=== PATIENT | male | born 1950 | race African-American/Black ===

== ENCOUNTER 2016-10-24 15:31 | Emergency (ER) | payer OTHER, MEDICAID ==
[~2016-10-24] VITALS: Ht 182.9 cm; Wt 143.0 kg
[~2016-10-24 15:31] MED LIST: CLOP75TA33 PO; FURO40TA5 PO; GABA-531 PO; HYDR-4092 PO; LISI10TA5 PO; LOSA100T14 PO; RIVA20TA PO; TAMS0.4C31 PO; TRAM50TA3 PO
[2016-10-24 16:27] LABS: BASOPHILS % 0.7 % (0.0-2.0); EOSINOPHILS % 2.9 % (0.0-5.0); HEMATOCRIT. 37.4 % (42.0-52.0); LYMPHOCYTES % 32.7 % (20.0-50.0); MEAN CORPUSCULAR HEMOGLOBIN 32.1 pg (28.0-32.0); MEAN CORPUSCULAR VOLUME 92.8 fL (80.0-94.0); MEAN PLATELET VOLUME 8.5 fl (7.4-10.4); MONOCYTES % 9.6 % (2.0-8.0); NEUTROPHILS % 54.1 % (40.0-76.0); PLATELET 152 x1000/uL (130-400); RED BLOOD CELL COUNT 4.03 mill/uL (4.7-6.1); RED CELL DISTRIBUTION WIDTH 14.1 % (11.6-14.6)
[2016-10-24 16:34] LABS: INR 1.1; PROTHROMBIN TIME 11.3 sec
[2016-10-24 16:41] LABS: CARBON DIOXIDE 30 mEq/L (21-32); CHLORIDE 105 mEq/L (98-107); TROPONIN I < 0.02 ng/mL (0.00-0.04)
[2016-10-24 16:43] LABS: CLARITY URINE CLEAR (CLEAR); COLOR URINE YELLOW (YELLOW); GLUCOSE URINE NEGATIVE (NEGATIVE); KETONES URINE NEGATIVE (NEGATIVE); LEUKOCYTE ESTERASE URINE NEGATIVE (NEGATIVE); NITRITE URINE NEGATIVE (NEGATIVE); OCCULT BLOOD URINE NEGATIVE (NEGATIVE); PROTEIN URINE NEGATIVE (NEGATIVE); SPECIFIC GRAVITY URINE 1.011 (1.005-1.030); UROBILINOGEN URINE 0.2 E.U./dL (0.2-1.0)
[2016-10-24] MEDS ORDERED: FUROSEMIDE 40MG TABLET PO ONE (18:30)
[2016-10-24 18:58] VITALS: BP 111/60
== END 2016-10-24 19:07 | disposition home or self-care (01) ==
LOC: ER 15:59
DX: R60.0 Localized edema (principal); I11.0 Hypertensive heart disease with heart failure; I50.9 Heart failure, unspecified; I25.10 Atherosclerotic heart disease of native coronary artery without angina pectoris; E78.00 Pure hypercholesterolemia, unspecified; Z95.5 Presence of coronary angioplasty implant and graft; Z95.0 Presence of cardiac pacemaker; Z86.73 Personal history of transient ischemic attack (TIA), and cerebral infarction without residual deficits; Z79.01 Long term (current) use of anticoagulants
CPT/HCPCS: 36415; 71010; 80053; 81003; 83880; 84484; 85025; 85610; 93005; 93970; 99285

== ENCOUNTER 2017-05-18 10:51 | Emergency (ER) | payer OTHER, MEDICAID ==
[~2017-05-18] VITALS: Ht 180.3 cm; Wt 140.0 kg
[2017-05-18] MEDS ORDERED: KETOROLAC 30MG/ML VIAL IV STA (11:07)
[2017-05-18] MEDS ORDERED: SODIUM CHLORIDE 0.9% 500 ML IV ONE (11:07)
[2017-05-18 12:12] LABS: BASOPHILS % 0.6 % (0.0-2.0); EOSINOPHILS % 1.9 % (0.0-5.0); HEMATOCRIT. 37.5 % (42.0-52.0); HEMOGLOBIN. 12.8 g/dL (14.0-18.0); LYMPHOCYTES % 24.1 % (20.0-50.0); MEAN CORPUSCULAR HEMOGLOBIN 32.4 pg (28.0-32.0); MEAN CORPUSCULAR VOLUME 95.2 fL (80.0-94.0); MEAN PLATELET VOLUME 8.2 fl (7.4-10.4); MONOCYTES % 9.2 % (2.0-8.0); NEUTROPHILS % 64.2 % (40.0-76.0); PLATELET 135 x1000/uL (130-400); RED BLOOD CELL COUNT 3.94 mill/uL (4.7-6.1); RED CELL DISTRIBUTION WIDTH 13.9 % (11.6-14.6)
[2017-05-18 12:27] LABS: INR 1.2; PROTHROMBIN TIME 12.7 sec (9.4-11.6)
[2017-05-18 12:28] LABS: CARBON DIOXIDE 31 mEq/L (21-32); CHLORIDE 109 mEq/L (98-107); TROPONIN I < 0.02 ng/mL (0.00-0.04)
[2017-05-18 15:40] LABS: KETONES URINE NEGATIVE (NEGATIVE); LEUKOCYTE ESTERASE URINE NEGATIVE (NEGATIVE); NITRITE URINE NEGATIVE (NEGATIVE); OCCULT BLOOD URINE 3+ (NEGATIVE); PH URINE 5.5 (4.5-8.0); PROTEIN URINE NEGATIVE (NEGATIVE); SPECIFIC GRAVITY URINE 1.013 (1.005-1.030); UROBILINOGEN URINE 0.2 E.U./dL (0.2-1.0)
[2017-05-18 15:47] LABS: CLARITY URINE SLIGHTLY HAZY (CLEAR); COLOR URINE YELLOW (YELLOW)
[2017-05-18] MEDS ORDERED: MORPHINE SULFATE 4 MG/ML CPJ (NOT FOR IM USE) IV ONE (16:45)
[2017-05-18 21:40] VITALS: BP 139/75
== END 2017-05-18 22:19 | disposition home or self-care (01) ==
LOC: ER 10:51
DX: R31.9 Hematuria, unspecified (principal); R33.9 Retention of urine, unspecified; N20.0 Calculus of kidney; G89.29 Other chronic pain; I11.0 Hypertensive heart disease with heart failure; I50.9 Heart failure, unspecified; N40.1 Benign prostatic hyperplasia with lower urinary tract symptoms; I25.2 Old myocardial infarction; I25.10 Atherosclerotic heart disease of native coronary artery without angina pectoris; Z95.1 Presence of aortocoronary bypass graft; Z95.0 Presence of cardiac pacemaker; Z86.73 Personal history of transient ischemic attack (TIA), and cerebral infarction without residual deficits; Z79.01 Long term (current) use of anticoagulants
CPT/HCPCS: 36415; 51702; 71010; 74176; 80053; 81001; 83690; 83880; 84484; 85025; 85610; 93005; 96361; 96374; 96375; 99285; J1885; J2270; J7030

== ENCOUNTER 2018-02-28 16:19 | Inpatient (IN) | payer MEDICARE, MEDICAID ==
[~2018-02-28] VITALS: Ht 190.5 cm; Wt 140.6 kg
[~2018-02-28 16:19] MED LIST changes: +HYDR-4086 PO; -HYDR-4092 PO
[2018-02-28] MEDS ORDERED: LABETALOL 5MG/ML SYR 20 MG/4 ML SYRINGE IV ONE (16:45)
[2018-02-28] MEDS ORDERED: MORPHINE SULFATE 4 MG/ML CPJ (NOT FOR IM USE) IV ONE (16:45)
[2018-02-28] MEDS: NITROGLYCERIN 0.4MG TABLET SL SL PRN ×2 (17:26→19:07)
[2018-02-28 17:51] LABS: INR 1.2; PROTHROMBIN TIME 12.4 sec (9.1-11.1)
[2018-02-28 17:53] LABS: CHLORIDE 108 mEq/L (98-107)
[2018-02-28 17:57] LABS: BASOPHILS % 0.7 % (0.0-2.0); EOSINOPHILS % 2.3 % (0.0-5.0); HEMOGLOBIN. 12.8 g/dL (14.0-18.0); LYMPHOCYTES % 25.7 % (20.0-50.0); MEAN CORPUSCULAR HEMOGLOBIN 32.2 pg (28.0-32.0); MEAN CORPUSCULAR VOLUME 95.6 fL (80.0-94.0); MEAN PLATELET VOLUME 8.9 fl (7.4-10.4); MONOCYTES % 7.1 % (2.0-8.0); NEUTROPHILS % 64.2 % (40.0-76.0); PLATELET 119 x1000/uL (130-400); RED BLOOD CELL COUNT 3.98 mill/uL (4.7-6.1); RED CELL DISTRIBUTION WIDTH 14.5 % (11.6-14.6)
[2018-02-28] MEDS ORDERED: IOHEXOL-350 100 ML BOTTLE ONE (20:19)
[2018-02-28] MEDS ORDERED: ASPIRIN 81MG TABLET PO ONE (21:45)
[2018-02-28 22:05] VITALS: BP 154/52
[2018-03-01] MEDS ORDERED: ONDA4TAB50 PO (01:33)
[2018-03-01] MEDS ORDERED: SACU1TAB7 PO (01:33)
[2018-03-01] MEDS ORDERED: PANT40TA4 PO (01:33)
[2018-03-01] MEDS ORDERED: METH-612 PO (01:33)
[2018-03-01] MEDS ORDERED: LACT10SO7 PO (01:33)
[2018-03-01] MEDS ORDERED: ISOS10TA2 PO (01:33)
[2018-03-01] MEDS ORDERED: CARV3.1242 PO (01:33)
[2018-03-01] MEDS ORDERED: ACETAMINOPHEN 325MG TABLET PO PRN (01:45)
[2018-03-01] MEDS ORDERED: FURO40TA5 PO (02:06)
[2018-03-01] MEDS ORDERED: GABA-531 PO (02:06)
[2018-03-01] MEDS ORDERED: CLOP75TA15 PO (02:08)
[2018-03-01] MEDS ORDERED: RIVA20TA PO (02:08)
[2018-03-01] MEDS ORDERED: MEDICATION NOT ON FORMULARY EA (Lactulose 30 ML) PO SCH (02:15)
[2018-03-01] MEDS ORDERED: ONDANSETRON HCL PO PRN ×2 (02:15→03:00)
[2018-03-01] MEDS ORDERED: METHOCARBAMOL PO SCH ×2 (02:15→14:15)
[2018-03-01] MEDS ORDERED: LACTULOSE 20G/30ML UDC PO PRN (03:30)
[2018-03-01 04:00] VITALS: BP 127/70
[2018-03-01] MEDS ORDERED: ONDANSETRON HCL 4MG TABLET PO PRN (05:00)
[2018-03-01] MEDS: FUROSEMIDE 40MG TABLET PO SCH ×2 (06:29→18:07)
[2018-03-01] MEDS: PANTOPRAZOLE 40MG DR TABLET PO SCH (06:30)
[2018-03-01] MEDS: MORPHINE SULFATE 4 MG/ML CPJ (NOT FOR IM USE) IV PRN ×2 (06:32→18:04)
[2018-03-01 07:58] VITALS: BP 130/81
[2018-03-01] MEDS ORDERED: INFLUENZA VIRUS VACCINE(AFLURIA) 0.5ML SYR IM ONE (08:00)
[2018-03-01 08:25] LABS: BASOPHILS % 0.6 % (0.0-2.0); EOSINOPHILS % 3.3 % (0.0-5.0); HEMATOCRIT. 39.4 % (42.0-52.0); HEMOGLOBIN. 13.2 g/dL (14.0-18.0); LYMPHOCYTES % 38.4 % (20.0-50.0); MEAN CORPUSCULAR HEMOGLOBIN 31.7 pg (28.0-32.0); MEAN CORPUSCULAR VOLUME 94.8 fL (80.0-94.0); MEAN PLATELET VOLUME 8.9 fl (7.4-10.4); MONOCYTES % 12.6 % (2.0-8.0); NEUTROPHILS % 45.1 % (40.0-76.0); PLATELET 103 x1000/uL (130-400); RED BLOOD CELL COUNT 4.15 mill/uL (4.7-6.1); RED CELL DISTRIBUTION WIDTH 13.9 % (11.6-14.6)
[2018-03-01] MEDS: ISOSORBIDE DINITRATE 10MG TABLET PO SCH ×3 (08:54→18:07)
[2018-03-01] MEDS: CLOPIDOGREL 75MG TABLET PO SCH (08:55)
[2018-03-01] MEDS: CARVEDILOL 3.125 MG TABLET PO SCH ×2 (08:55→20:45)
[2018-03-01] MEDS: GABAPENTIN 300MG CAPSULE PO SCH ×3 (08:56→18:40)
[2018-03-01] MEDS: METHOCARBAMOL 750MG TABLET PO SCH ×2 (08:56→20:45)
[2018-03-01] MEDS: TAMSULOSIN HCL 0.4MG SR CAPSULE PO SCH (08:56)
[2018-03-01] MEDS ORDERED: MEDICATION NOT ON FORMULARY EA (Furosemide 1 TAB) PO SCH (09:00)
[2018-03-01] MEDS ORDERED: MEDICATION NOT ON FORMULARY EA (Rivaroxaban (Xarelto) 20 MG) PO SCH (09:00)
[2018-03-01] MEDS ORDERED: PANTOPRAZOLE SODIUM PO SCH (09:00)
[2018-03-01] MEDS ORDERED: MEDICATION NOT ON FORMULARY EA (Clopidogrel Bisulfate (Clopidogrel) 75 MG) PO SCH (09:00)
[2018-03-01] MEDS ORDERED: SACUBITRIL PO SCH ×2 (09:00)
[2018-03-01] MEDS ORDERED: [UNRECOGNIZED DRUG - OTHER] PO SCH (09:00)
[2018-03-01] MEDS ORDERED: CLOPIDOGREL BISULFATE PO SCH (09:00)
[2018-03-01] MEDS ORDERED: ISOSORBIDE DINITRATE PO SCH ×2 (09:00)
[2018-03-01] MEDS ORDERED: FUROSEMIDE PO SCH (09:00)
[2018-03-01] MEDS ORDERED: VALSARTAN PO SCH ×2 (09:00)
[2018-03-01] MEDS ORDERED: [UNRECOGNIZED DRUG - OTHER] PO SCH (09:00)
[2018-03-01] MEDS ORDERED: MEDICATION NOT ON FORMULARY EA (Rivaroxaban (Xarelto) 1 TAB) PO SCH (09:00)
[2018-03-01] MEDS ORDERED: MEDICATION NOT ON FORMULARY EA (Gabapentin 1 CAP) PO SCH (09:00)
[2018-03-01] MEDS ORDERED: MEDICATION NOT ON FORMULARY EA (Gabapentin 300 MG) PO SCH (09:00)
[2018-03-01] MEDS ORDERED: MEDICATION NOT ON FORMULARY EA (Furosemide 40 MG) PO SCH (09:00)
[2018-03-01] MEDS ORDERED: MEDICATION NOT ON FORMULARY EA (Pantoprazole Sodium 1 TAB) PO SCH (09:00)
[2018-03-01] MEDS: IPRATROPIUM/ALBUTEROL 0.5-3(2.5)MG/3ML NEB HHN SCH ×4 (09:26→21:30)
[2018-03-01 09:37] LABS: CHLORIDE 108 mEq/L (98-107)
[2018-03-01 09:43] LABS: CREATINE KINASE 93 IU/L (39-308); CREATINE KINASE MB FRACTION 1.4 ng/mL (0.5-3.6); HDL CHOLESTEROL 34 mg/dL (40-59); LDL CHOLESTEROL 83 mg/dL (5-100)
[2018-03-01 10:40] LABS: CLARITY URINE CLEAR (CLEAR); COLOR URINE YELLOW (YELLOW); KETONES URINE NEGATIVE (NEGATIVE); LEUKOCYTE ESTERASE URINE NEGATIVE (NEGATIVE); NITRITE URINE NEGATIVE (NEGATIVE); OCCULT BLOOD URINE NEGATIVE (NEGATIVE); PH URINE 5.5 (4.5-8.0); PROTEIN URINE NEGATIVE (NEGATIVE); SPECIFIC GRAVITY URINE 1.024 (1.005-1.030)
[2018-03-01 12:08] VITALS: BP 127/70
[2018-03-01 16:25] VITALS: BP 102/65
[2018-03-01 17:25] LABS: CREATINE KINASE 86 IU/L (39-308); CREATINE KINASE MB FRACTION 1.2 ng/mL (0.5-3.6)
[2018-03-01 17:30] LABS: *AMPHETAMINES SCREEN URINE NEGATIVE (NEGATIVE)
[2018-03-01 17:32] LABS: *BARBITURATES SCREEN URINE NEGATIVE (NEGATIVE); *BENZODIAZEPINES SCREEN URINE NEGATIVE (NEGATIVE); *COCAINE SCREEN URINE NEGATIVE (NEGATIVE); CANNABINOID URINE SCREEN NEGATIVE (NEGATIVE); METHADONE URINE SCREEN NEGATIVE (NEGATIVE); OPIATES URINE SCREEN PRESUMTIVE POSITIVE (NEGATIVE); PHENCYCLIDINE URINE SCREEN NEGATIVE (NEGATIVE)
[2018-03-01] MEDS: RIVAROXABAN 20 MG TABLET PO SCH (18:07)
[2018-03-01 20:00] VITALS: BP_SYST 93; BP_SYST 99; BP_DIAS 35
[2018-03-02] VITALS (7 sets, daily range): BP systolic 97–142; BP diastolic 45–65
[2018-03-02 01:12] LABS: CREATINE KINASE 78 IU/L (39-308); CREATINE KINASE MB FRACTION 1.1 ng/mL (0.5-3.6)
[2018-03-02] MEDS: FUROSEMIDE 40MG TABLET PO SCH ×2 (06:23→16:18)
[2018-03-02] MEDS: PANTOPRAZOLE 40MG DR TABLET PO SCH (06:23)
[2018-03-02 07:54] LABS: HEMATOCRIT 40.1 % (42.0-52.0); HEMOGLOBIN 13.7 g/dL (14.0-18.0); MEAN CORPUSCULAR HEMOGLOBIN 32.1 pg (28.0-32.0); MEAN CORPUSCULAR VOLUME 94.2 fL (80.0-94.0); PLATELET 112 x1000/uL (130-400); RED BLOOD CELL COUNT 4.25 mill/uL (4.7-6.1); RED CELL DISTRIBUTION WIDTH 14.3 % (11.6-14.6)
[2018-03-02] MEDS: IPRATROPIUM/ALBUTEROL 0.5-3(2.5)MG/3ML NEB HHN SCH ×4 (08:42→19:47)
[2018-03-02] MEDS: MORPHINE SULFATE 4 MG/ML CPJ (NOT FOR IM USE) IV PRN ×3 (09:09→21:59)
[2018-03-02] MEDS: GABAPENTIN 300MG CAPSULE PO SCH ×3 (09:20→16:18)
[2018-03-02] MEDS: CLOPIDOGREL 75MG TABLET PO SCH (09:20)
[2018-03-02] MEDS: METHOCARBAMOL 750MG TABLET PO SCH ×2 (09:20→20:15)
[2018-03-02] MEDS: CARVEDILOL 3.125 MG TABLET PO SCH ×2 (09:20→20:16)
[2018-03-02] MEDS: TAMSULOSIN HCL 0.4MG SR CAPSULE PO SCH (09:20)
[2018-03-02] MEDS: ISOSORBIDE DINITRATE 10MG TABLET PO SCH ×3 (09:20→16:22)
[2018-03-02] MEDS ORDERED: CLONIDINE 0.2MG TABLET PO PRN (11:00)
[2018-03-02] MEDS ORDERED: CLONIDINE 0.1MG TABLET PO PRN (11:30)
[2018-03-02 12:34] LABS: CHLORIDE 104 mEq/L (98-107)
[2018-03-02] MEDS: RIVAROXABAN 20 MG TABLET PO SCH (16:18)
[2018-03-03] VITALS: BP 100/49
[2018-03-03 04:00] VITALS: BP 110/50
[2018-03-03] MEDS: MORPHINE SULFATE 4 MG/ML CPJ (NOT FOR IM USE) IV PRN ×2 (04:15→20:27)
[2018-03-03] MEDS: PANTOPRAZOLE 40MG DR TABLET PO SCH (06:06)
[2018-03-03] MEDS: FUROSEMIDE 40MG TABLET PO SCH ×2 (06:06→17:01)
[2018-03-03 06:44] LABS: BASOPHILS % 0.5 % (0.0-2.0); EOSINOPHILS % 3.5 % (0.0-5.0); HEMATOCRIT. 37.8 % (42.0-52.0); HEMOGLOBIN. 13.1 g/dL (14.0-18.0); LYMPHOCYTES % 27.5 % (20.0-50.0); MEAN CORPUSCULAR HEMOGLOBIN 32.4 pg (28.0-32.0); MEAN CORPUSCULAR VOLUME 93.8 fL (80.0-94.0); MEAN PLATELET VOLUME 8.7 fl (7.4-10.4); MONOCYTES % 10.2 % (2.0-8.0); NEUTROPHILS % 58.3 % (40.0-76.0); PLATELET 107 x1000/uL (130-400); RED BLOOD CELL COUNT 4.03 mill/uL (4.7-6.1); RED CELL DISTRIBUTION WIDTH 14.2 % (11.6-14.6)
[2018-03-03 07:52] LABS: CHLORIDE 107 mEq/L (98-107); CREATINE KINASE 74 IU/L (39-308); CREATINE KINASE MB FRACTION < 1.0 ng/mL (0.5-3.6); HDL CHOLESTEROL 34 mg/dL (40-59); LDL CHOLESTEROL 77 mg/dL (5-100)
[2018-03-03 08:00] VITALS: BP 120/68
[2018-03-03] MEDS: METHOCARBAMOL 750MG TABLET PO SCH ×2 (08:41→21:00)
[2018-03-03] MEDS: CLOPIDOGREL 75MG TABLET PO SCH (08:42)
[2018-03-03] MEDS: TAMSULOSIN HCL 0.4MG SR CAPSULE PO SCH (08:42)
[2018-03-03] MEDS: GABAPENTIN 300MG CAPSULE PO SCH ×3 (08:43→16:59)
[2018-03-03] MEDS: ISOSORBIDE DINITRATE 10MG TABLET PO SCH ×3 (08:43→16:58)
[2018-03-03] MEDS: CARVEDILOL 3.125 MG TABLET PO SCH ×2 (08:43→21:00)
[2018-03-03] MEDS: IPRATROPIUM/ALBUTEROL 0.5-3(2.5)MG/3ML NEB HHN SCH ×4 (09:24→20:35)
[2018-03-03] MEDS ORDERED: REGADENOSON 0.4 MG/5 ML IV SCH (09:45)
[2018-03-03] MEDS ORDERED: REGADENOSON 0.4 MG/5 ML IV ONE (12:29)
[2018-03-03 16:09] VITALS: BP 142/90
[2018-03-03] MEDS: RIVAROXABAN 20 MG TABLET PO SCH (16:57)
[2018-03-03 20:00] VITALS: BP 110/73
[2018-03-03 22:49] VITALS: BP 110/73
[2018-03-04 00:53] VITALS: BP 117/79
== END 2018-03-04 01:05 | DRG 292 ==
LOC: ER 16:19 → 6WST 19:21 → EDBEDREQ 19:37 → EDBEDREQTM 19:37 → ENRESERV 20:56
PROVIDERS: ADMIT Internal Medicine; ATTEND Internal Medicine
DX: I11.0 Hypertensive heart disease with heart failure (principal); D68.59 Other primary thrombophilia; I50.33 Acute on chronic diastolic (congestive) heart failure; R07.89 Other chest pain; D69.6 Thrombocytopenia, unspecified; E78.00 Pure hypercholesterolemia, unspecified; E66.9 Obesity, unspecified; M54.2 Cervicalgia; K21.9 Gastro-esophageal reflux disease without esophagitis; G62.9 Polyneuropathy, unspecified; I25.10 Atherosclerotic heart disease of native coronary artery without angina pectoris; Z86.73 Personal history of transient ischemic attack (TIA), and cerebral infarction without residual deficits; Z86.718 Personal history of other venous thrombosis and embolism; Z95.1 Presence of aortocoronary bypass graft; Z95.0 Presence of cardiac pacemaker; Z82.49 Family history of ischemic heart disease and other diseases of the circulatory system; Z90.49 Acquired absence of other specified parts of digestive tract; Z87.891 Personal history of nicotine dependence; Z68.38 Body mass index [BMI] 38.0-38.9, adult; Z79.899 Other long term (current) drug therapy; Z79.02 Long term (current) use of antithrombotics/antiplatelets
CPT/HCPCS: 36415; 71045; 71275; 78452; 80048; 80061; 80305; 82550; 82553; 83036; 83735; 83880; 84443; 84484; 85027; 85379; 90686; 93005; 93017; 93306; 93880; 93970; 94640; 96374; 96375; 97162; 99291; A9500; J2270; J2785; J3490; J7620; Q9967